=== PATIENT | female | born 1990 | race Caucasian/White ===

== ENCOUNTER 2023-09-27 12:49 | Outpatient (CLI) | payer OTHER ==
[~2023-09-27 12:49] MED LIST: Iopamidol 300 61% 100 ML VIAL FS ONE
== END 2023-09-27 12:50 | disposition home or self-care (01) ==
LOC: CSHCT 12:49
PROVIDERS: ATTEND Psychiatry & Neurology Neurology
DX: R93.89 Abnormal findings on diagnostic imaging of other specified body structures (principal); K44.9 Diaphragmatic hernia without obstruction or gangrene; K22.89 Other specified disease of esophagus
CPT/HCPCS: 72130